=== PATIENT | male | born 1995 | race Caucasian/White ===

== ENCOUNTER 2016-04-16 00:31 | Emergency (ER) | payer BC, MEDICAID | END 2016-04-16 03:03 | disposition home or self-care (01) | LOC: ER 00:31 | DX: S61.214A Laceration without foreign body of right ring finger without damage to nail, initial encounter (principal); W26.0XXA Contact with knife, initial encounter; Y92.009 Unspecified place in unspecified non-institutional (private) residence as the place of occurrence of the external cause ==